=== PATIENT | female | born 1980 | race Caucasian/White ===

== ENCOUNTER 2019-03-09 15:46 | Emergency (ER) | payer BC ==
[2019-03-09 16:32] VITALS: BP 108/69
== END 2019-03-09 17:13 | disposition left against medical advice (07) ==
LOC: UCEAST 15:46
DX: Z53.8 Procedure and treatment not carried out for other reasons (principal)

== ENCOUNTER 2019-03-10 08:24 | Emergency (ER) | payer BC ==
[2019-03-10 08:36] VITALS: BP 121/67
--- NOTE | 2019-03-10 08:50 | UC ---
Skin Complaint HPI - HPI Summary HPI Summary: 38-year-old woman comes in with a chief complaint of a rash. Rash started sometime around February 27, 2019 on her left forearm. It then spread onto her left side of her abdomen. Given the way it spread it appeared to be a contact dermatitis. Was seen here on February 28, 2019 and started on prednisone 50 mg a day for 7 days. Rashes continued to spread by enlarging on the left side of her trunk and also going to the right forearm. It is itchy. No fevers or chills feels well otherwise. There is no drainage from the rash. When she was on the prednisone the itching was less. She also had a prescription for an antibiotic which she did not start. She had no fevers or chills. - History of Current Complaint Chief Complaint: [facility] Time Seen by Provider: 03/10/19 08:31 Stated Complaint: RASH Hx Last Menstrual Period: 02/17/19 Pain Intensity: 0 - Allergy/Home Medications Allergies/Adverse Reactions: Allergies Allergy/AdvReac Type Severity Reaction Status Date / Time No Known Allergies Allergy Verified 03/10/19 08:35 PMH/Surg Hx/FS Hx/Imm Hx Previously Healthy: Yes - Surgical History Surgical History: Yes Surgery Procedure, Year, and Place: 2 - Family History Known Family History: Positive: Non-Contributory - Social History Alcohol Use: Weekly Substance Use Type: None Smoking Status (MU): Never Smoked Tobacco Have You Smoked in the Last Year: No - Immunization History Most Recent Influenza Vaccination: unknown Most Recent Tetanus Shot: 05/12/12 Most Recent Pneumonia Vaccination: never Review of Systems All Other Systems Reviewed And Are Negative: Yes Constitutional: Positive: Negative Skin: Positive: Other - SEE HPI Eyes: Positive: Negative ENT: Positive: Negative Respiratory: Positive: Negative Cardiovascular: Positive: Negative Gastrointestinal: Positive: Negative Motor: Positive: Negative Neurovascular: Positive: Negative Musculoskeletal: Positive: Negative Neurological: Positive: Negative Psychological: Positive: Negative Is Patient Immunocompromised?: No Physical Exam Triage Information Reviewed: Yes Appearance: Well-Appearing, No Pain Distress, Well-Nourished Vital Signs: Initial Vital Signs Temp 99.3 F 03/10/19 08:31 Pulse 75 03/10/19 08:31 Resp 16 03/10/19 08:31 BP 121/67 03/10/19 08:31 Pulse Ox 97 03/10/19 08:31 Vital Signs Reviewed: Yes Eye Exam: Normal Eyes: Positive: Conjunctiva Clear Neck: Positive: Supple Respiratory: Positive: No respiratory distress Musculoskeletal: Positive: Strength Intact, ROM Intact Neurological: Positive: Alert, Muscle Tone Normal Psychological: Positive: Age Appropriate Behavior Skin: Positive: Other - There is a scattered erythematous rash. The largest patch is on the left side of the trunk 20 cm x 10 cm. Has slightly raised borders with clearing in the middle. Patient reports the rash is spread out from the center. Smaller patches anywhere from 5 mm to linear 4 cm x 1 cm patches of the same rash on the right forearm on the left side of the abdomen. Course/Dx - Course Course Of Treatment: The cause of the rash does not appear to be bacterial as the patient feels well. Therefore we will not treat with antibiotics. The prednisone did help some with the rash and will restart her prednisone taper. Also prescribed an antifungal to be used to see if it's helpful. Patient has a follow-up arranged with dermatology on March 29, 2019. Reevaluate sooner if worse or any questions or concerns. - Diagnoses Provider Diagnosis: Rash Discharge ED - Sign-Out/Discharge Documenting (check all that apply): Patient Departure All imaging exams completed and their final reports reviewed: No Studies - Discharge Plan Condition: Stable Disposition: HOME Prescriptions: Ketoconazole 2 % CREAM (NF) [Nizoral 2% CREAM (NF)] 1 applic TOPICAL DAILY #1 tube predniSONE [Prednisone 20 MG TAB] 20 mg PO SEE INSTRUCTIONS #24 tablet Patient Education Materials: Acute Rash (ED) Referrals: Gabrielle Chavez MD [Primary Care Provider] - Additional Instructions: FOLLOW UP WITH DERMATOLOGY 03/29/19 SCHEDULED. GET RECHECKED SOONER IF YOUR CONDITION WORSENS OR ANY QUESTIONS OR CONCERNS. - Billing Disposition and Condition Condition: STABLE Disposition: Home
== END 2019-03-10 08:56 | disposition home or self-care (01) ==
LOC: UCEAST 08:24
DX: R21 Rash and other nonspecific skin eruption (principal)
CPT/HCPCS: 99212; G0463